=== PATIENT | male | born 1985 | race Caucasian/White ===

== ENCOUNTER 2018-12-30 10:46 | Emergency (ER) | payer OTHER ==
[~2018-12-30] VITALS: Ht 180.3 cm; Wt 98.9 kg
[2018-12-30 11:00] VITALS: BP 149/81
[2018-12-30] MEDS ORDERED: DEXAMETHASONE SOD PHOS 10 MG/ML VIAL IM ONE (12:00)
[2018-12-30] MEDS ORDERED: KETOROLAC 60 MG/2 ML VIAL. IM ONE (12:00)
[2018-12-30] MEDS ORDERED: KETO10TA PO (12:06)
[2018-12-30] MEDS ORDERED: METH-38 PO (12:06)
--- NOTE | 2018-12-30 12:06 | PHYS DOC ---
Past History Past Medical History: GERD Alcohol Use: Rarely Drug Use: None Adult General Chief Complaint Chief Complaint: BACK PAIN OR INJURY [facility] HPI Patient is a 33-year-old male who presents with complaint of left-sided back pain after twisting his back accidentally. Patient states that he had his child in his arms and he went to step off of a curb and was twisting his back when his foot slipped off of the edge of curb and landed on ground. Patient states that he felt a twinge in his back and later that night when he went to bed, he started having a lot of pain in his back. He states that last night the pain was so severe that he had to sleep upright in a chair. He denies any loss of bowel or bladder control and has no radiation of pain into the extremities nor saddle anesthesia. He rates pain at a 7 out of 10. He states that pain is worsened with deep breathing, coughing or sneezing. Review of Systems Review of Systems Constitutional: Denies fever or chills [] Respiratory: Denies cough or shortness of breath [] Cardiovascular: No additional information not addressed in HPI [] : Denies dysuria or hematuria [] Musculoskeletal: Complains of left-sided lower thoracic back pain [] Integument: Denies rash or skin lesions [] Neurologic: Denies headache, focal weakness or sensory changes [] Current Medications Current Medications Current Medications Medications (Trade) Dose Ordered Sig/[facility] Start Time Stop Time Status Last Admin Dose Admin Dexamethasone Sodium Phosphate (Decadron) 10 mg 1X ONCE 12/30/18 12:00 12/30/18 12:01 DC Ketorolac Tromethamine (Toradol Im) 60 mg 1X ONCE 12/30/18 12:00 12/30/18 12:01 DC Allergies Allergies Allergies Coded Allergies Type Severity Reaction Last Updated Verified cephalexin Allergy Unknown 12/30/18 Yes Physical Exam Physical Exam Constitutional: Well developed, well nourished, no acute distress, non-toxic appearance. [] Cardiovascular:Heart rate regular rhythm, no murmur [] Lungs & Thorax: Bilateral breath sounds clear to auscultation [] Skin: Warm, dry, no erythema, no rash. [] Back: Examination of back demonstrates tissue texture change at T10 on the left with tenderness around the 10th rib angle. There is also palpable spasm in the lower thoracic and lumbar paraspinal musculature. [] Current Patient Data Vital Signs Vital Signs Date Time Temp Pulse Resp B/P (MAP) Pulse Ox O2 Delivery O2 Flow Rate FiO2 12/30/18 11:00 98.4 93 18 99 Room Air EKG EKG [] Radiology/Procedures Radiology/Procedures [] Course & Med Decision Making Course & Med Decision Making Pertinent Labs and Imaging studies reviewed. (See chart for details) [] Dragon Disclaimer Dragon Disclaimer This electronic medical record was generated, in whole or in part, using a voice recognition dictation system. Departure Departure: Impression: Primary Impression: Acute thoracic myofascial strain Disposition: HOME, SELF-CARE Condition: STABLE Patient Instructions: Thoracic Strain Scripts Methocarbamol (ROBAXIN-750) 750 Mg Tablet 1 TAB PO QID PRN for MUSCLE SPASMS, #20 TAB Prov: LENARD RODRIGUEZ Jr. DO 12/30/18 Ketorolac Tromethamine (KETOROLAC TROMETHAMINE) 10 Mg Tablet 1 TAB PO PRN Q6HRS PRN for PAIN, #20 TAB Prov: LENARD RODRIGUEZ Jr. DO 12/30/18 Problem Qualifiers Primary Impression: Acute thoracic myofascial strain Encounter type: initial encounter Qualified Codes: S29.019A - Strain of muscle and tendon of unspecified wall of thorax, initial encounter LENARD RODRIGUEZ Jr. DO December 30, 2018 12:06
== END 2018-12-30 12:44 | disposition home or self-care (01) ==
LOC: ER 10:46
DX: S29.012A Strain of muscle and tendon of back wall of thorax, initial encounter (principal); K21.9 Gastro-esophageal reflux disease without esophagitis; M54.5 Low back pain; Z88.1 Allergy status to other antibiotic agents; X50.1XXA Overexertion from prolonged static or awkward postures, initial encounter; Y93.89 Activity, other specified; Y92.89 Other specified places as the place of occurrence of the external cause; Y99.8 Other external cause status
CPT/HCPCS: 96372; 99284; J1100; J1885